=== PATIENT | female | born 1995 | race Two or more races ===

== ENCOUNTER 2019-01-05 22:20 | Emergency (ER) | payer MEDICAID ==
[~2019-01-05] VITALS: Ht 160 cm; Wt 73.9 kg
[2019-01-06] MEDS ORDERED: IBUPROFEN 800 MG TAB PO ONE (02:30)
[2019-01-06 02:31] VITALS: BP 113/73
== END 2019-01-06 03:30 | disposition home or self-care (01) ==
LOC: ER 22:27
DX: K52.9 Noninfective gastroenteritis and colitis, unspecified (principal); K21.9 Gastro-esophageal reflux disease without esophagitis
CPT/HCPCS: 74176; 81002